=== PATIENT | female | born 1970 | race Caucasian/White ===

== ENCOUNTER 2017-06-02 15:22 | Emergency (ER) | payer BC, MEDICAID ==
[2017-06-02] MEDS ORDERED: Sodium Chloride 0.9% 500 ML IV ONE (15:59)
--- NOTE | 2017-06-02 16:15 | EDM.PDOC ---
ED HPI GENERAL MEDICAL PROBLEM - General Chief Complaint: Cardiovascular Problem Stated Complaint: [facility] Time Seen by Provider: 06/02/17 15:29 Source of Information: Reports: Patient History Limitations: Reports: No Limitations - History of Present Illness INITIAL COMMENTS - FREE TEXT/NARRATIVE: 47-year-old female presents via EMS for a rapid heartbeat. Reportedly around 1430 patient was watching TV when she experienced rapid heartbeat. They had a blood pressure cuff at home and her provided to her and she is on a heart rate ER from 160s to 190s. EMS was called. She is found to be in SVT. They attempted vagal maneuvers but were unsuccessful. She was given 6 mg of adenosine and did not convert. She converted to normal sinus rhythm with 12 mg of adenosine. Upon arrival to the ER patient is in a sinus tach rate up to 120s. She is resting comfortably. She is in no acute distress. She denies any chest pain, shortness of breath, lightheadedness, dizziness, nausea or vomiting. Patient's reports that she may have had an episode similar to this in April. She was at work when she experienced a rapid heartbeat. Was present for an hour. Resolved on its own. She's never been seen for anything like this before. Patient reports she is healthy with no known medical conditions. She is not on any medications. Reports that she had about a sixpack of beer last night. Denies any drug use. - Related Data Allergies Allergy/AdvReac Type Severity Reaction Status Date / Time horse dander Allergy Wheezing Verified 06/02/17 15:36 pet dander Allergy Wheezing Uncoded 06/02/17 15:36 Home Meds: Home Meds Albuterol [IJD: Ventolin HFA] 1 - 2 puff INH Q4H PRN 06/23/15 [History] Fluticasone/Salmeterol [Advair HFA 115-21 MCG] 1 puff INH BID 06/02/17 [History] Past Medical History HEENT History: Reports: Impaired Vision Other HEENT History: wears contacts. 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, R ovary oofrectomy Musculoskeletal History: Reports: Fracture - Infectious Disease History Infectious Disease History: Reports: Chicken Pox, Shingles Other Infectious Disease History: shingles 2 yrs ago - Past Surgical History HEENT Surgical History: Reports: Tonsillectomy Musculoskeletal Surgical History: Reports: Other (See Below) Other Musculoskeletal Surgeries/Procedures:: Ankle surgery x5 Social & Family History - Family History HEENT: Reports: Impaired Vision Other HEENT Family History: mom and dad Respiratory: Reports: COPD Other Respiratory Family Hisory: co-dad OBGYN: Reports: Musculoskeletal: Reports: Fibromyalgia Other Musculoskeletal Family History: mom - Tobacco Use Smoking Status *Q: Never Smoker Second Hand Smoke Exposure: No - Alcohol Use Days Per Week of Alcohol Use: 3 Number of Drinks Per Day: 0 Total Drinks Per Week: 0 - Recreational Drug Use Recreational Drug Use: No - Living Situation & Occupation Living situation: Reports: Occupation: Employed ED ROS GENERAL - Review of Systems Review Of Systems: See Below Constitutional: Denies: Fever Respiratory: Denies: Shortness of Breath Cardiovascular: Reports: Palpitations (tachycardia, earlier, now resolved). Denies: Chest Pain, Lightheadedness, Syncope GI/Abdominal: Denies: Abdominal Pain, Nausea, Vomiting Neurological: Denies: Headache, Syncope ED EXAM, GENERAL - Physical Exam Exam: See Below Exam Limited By: No Limitations General Appearance: Alert, WD/WN, No Apparent Distress Ears: Normal External Exam Nose: Normal Inspection Throat/Mouth: Normal Inspection, Normal Lips, Normal Voice, No Airway Compromise Respiratory/Chest: No Respiratory Distress, Lungs Clear, Normal Breath Sounds Cardiovascular: Normal Peripheral Pulses, Regular Rate, Rhythm, No Murmur GI/Abdominal: Soft, Non-Tender Neurological: Alert, Oriented, Normal Cognition Psychiatric: Normal Affect, Normal Mood Skin Exam: Warm, Dry, Normal Color EKG INTERPRETATION EKG Date: 06/02/17 Time: 15:25 Rhythm: Other (sins\us tachycardia at 105 bpm) Rate (Beats/Min): 105 [place]: Normal P-Wave: Present QRS: Normal ST-T: Normal QT: Normal EKG Interpretation Comments: Sinus tachycardia at 105 bpm. No acute changes. Reviewed by myself and Dr. Benites. Course - Vital Signs Last Recorded V/S: Last Vital Signs Temp 36.3 C 06/02/17 17:50 Pulse 111 H 06/02/17 15:25 Resp 16 06/02/17 17:50 BP 120/82 06/02/17 17:50 Pulse Ox 97 06/02/17 17:50 - Orders/Labs/Meds Orders: Active Orders 24 hr Category Date Time Status Cardiac Monitoring [RC] . DIRECTED Care 06/02/17 15:36 Active EKG 12 Lead [EKG Documentation Completion] [RC] STAT Care 06/02/17 15:44 Active Chest 1V Frontal [CR] Stat Exams 06/02/17 15:36 Taken Labs: Laboratory Tests 06/02/17 06/02/17 06/02/17 Range/Units 15:45 15:45 15:45 WBC 7.74 (3.98-10.04) K/mm3 RBC 3.92 L (3.98-5.22) M/mm3 Hgb 12.1 (11.2-15.7) gm/L Hct 36.1 (34.1-44.9) % MCV 92.1 (79.4-94.8) fl MCH 30.9 (25.6-32.2) pg MCHC 33.5 (32.2-35.5) g/dl RDW Std Deviation 46.2 (36.4-46.3) fL Plt Count 246 (182-369) K/mm3 MPV 9.5 (9.4-12.3) fl Neut % (Auto) 60.7 (34.0-71.1) % Lymph % (Auto) 23.9 (19.3-51.7) % [place] % (Auto) 7.1 (4.7-12.5) % Eos % (Auto) 7.6 H (0.7-5.8) Baso % (Auto) 0.6 (0.1-1.2) % Neut # (Auto) 4.69 (1.56-6.13) K/mm3 Lymph # (Auto) 1.85 (1.18-3.74) K/mm3 [place] # (Auto) 0.55 H (0.24-0.36) K/mm3 Eos # (Auto) 0.59 H (0.04-0.36) K/mm3 Baso # (Auto) 0.05 (0.01-0.08) K/mm3 Sodium 144 (136-145) mEq/L Potassium 4.2 (3.5-5.1) mEq/L Chloride 108 H (98-107) mEq/L Carbon Dioxide 23 (21-32) mEq/L Anion Gap 17.2 H (5-15) BUN 15 (7-18) mg/dL Creatinine 0.9 (0.55-1.02) mg/dL Est Cr Clr Drug Dosing 87.26 mL/min Estimated GFR (MDRD) > 60 (>60) mL/min BUN/Creatinine Ratio 16.7 (14-18) Glucose 93 (74-106) mg/dL Calcium 8.7 (8.5-10.1) mg/dL Magnesium 1.8 (1.8-2.4) mg/dl Total Bilirubin 0.3 (0.2-1.0) mg/dL AST 63 H (15-37) U/L ALT 37 (14-59) U/L Alkaline Phosphatase 71 (46-116) U/L Troponin I < 0.017 (0.00-0.056) ng/mL Total Protein 6.7 (6.4-8.2) g/dl Albumin 3.9 (3.4-5.0) g/dl Globulin 2.8 gm/dL Albumin/Globulin Ratio 1.4 (1-2) TSH 3rd Generation 1.889 (0.358-3.74) uIU/mL Meds: Medications Discontinued Medications Generic Name Dose Route Start Last Admin Trade Name Freq PRN Reason Stop Dose Admin Sodium Chloride 500 mls @ 500 mls/hr 06/02/17 15:59 06/02/17 16:07 Normal Saline IV 06/02/17 16:58 500 mls/hr ONETIME ONE Administration - Radiology Interpretation Free Text/Narrative:: chest xray shows no acute intrathoracic process. - Re-Assessments/Exams Free Text/Narrative Re-Assessment/Exam: 06/02/17 17:23 I reviewed the labs, EKG and imaging with the patient. she has been on the monitor since she arrived here and has not gone back into an SVT rhythm. She has been running in the 90s to low 100s. She received a liter and half of fluid. No etiology for her SVT has been found tonight. I will discharge her home at this time. Discharge instructions as documented. Departure - Departure Time of Disposition: 17:39 Disposition: Home, Self-Care 01 Condition: Good Clinical Impression: SVT (supraventricular tachycardia) Instructions: Supraventricular Tachycardia, Adult, [id number] Referrals: PCP,None [Ordering Only Provider] - Forms: ED Department Discharge Additional Instructions: Rest. Make sure drink plenty of fluids. Follow up with a primary care provider within for a recheck an ER follow-up. Recommend avoiding possible causes such as excessive caffeine or excessive alcohol. Please return to the ER if your symptoms change or worsen. - My Orders Last 24 Hours: My Active Orders 06/02/17 15:36 Cardiac Monitoring [RC] . DIRECTED Chest 1V Frontal [CR] Stat 06/02/17 15:44 EKG 12 Lead [EKG Documentation Completion] [RC] STAT - Assessment/Plan Last 24 Hours: My Active Orders 06/02/17 15:36 Cardiac Monitoring [RC] . DIRECTED Chest 1V Frontal [CR] Stat 06/02/17 15:44 EKG 12 Lead [EKG Documentation Completion] [RC] STAT
[2017-06-02 18:01] VITALS: BP 120/82
--- NOTE | 2017-06-03 07:38 | CR ---
Chest: Portable view of the chest was obtained. Comparison: Prior chest x-ray of 06/23/15. Heart size and mediastinum are normal. Lungs are clear but hyperinflated. Bony structures are unremarkable. Impression: 1. Probable emphysematous change. Nothing acute is otherwise seen on portable chest x-ray. Diagnostic code #2
== END 2017-06-02 17:55 | disposition home or self-care (01) ==
LOC: JD.ED 15:22
DX: I47.1 Supraventricular tachycardia (principal); J45.909 Unspecified asthma, uncomplicated; Z91.048 Other nonmedicinal substance allergy status
CPT/HCPCS: 36415; 71045; 80053; 83735; 84443; 84484; 85025; 93005; 96360; 99285; J7040; 93010; 99283-25

== ENCOUNTER 2018-04-25 08:07 | Emergency (ER) | payer BC ==
[~2018-04-25 08:07] MED LIST: Adenosine 12 MG/4 ML SDV ONE; Adenosine 6 MG/2 ML SDV ONE
[2018-04-25] MEDS ORDERED: Diltiazem 125 MG/25 ML SDV ONE (08:16)
[2018-04-25] MEDS ORDERED: Sodium Chloride 0.9% 10 ML Syringe FLUSH PRN (08:17)
[2018-04-25] MEDS ORDERED: Diltiazem 50 MG/10 ML SDV IVPUSH ONE (08:19)
[2018-04-25] MEDS ORDERED: Adenosine 6 MG/2 ML SDV IVPUSH ONE (08:19)
[2018-04-25] MEDS ORDERED: Diltiazem 50 MG/10 ML SDV ONE (08:20)
[2018-04-25] MEDS ORDERED: Sodium Chloride 0.9% 1,000 ML IV SCH ×2 (08:30→10:30)
[2018-04-25] MEDS ORDERED: Diltiazem 125 MG in Sodium Chloride 0.9% 100 ML IV SCH ×2 (08:30→11:15)
--- NOTE | 2018-04-25 08:50 | CR ---
Chest: Frontal view of the chest was obtained. Comparison: Previous chest x-ray of 06/02/17. Increasing interstitial change is noted from previous exam. Lungs otherwise are clear. Heart size and mediastinum are normal. Lungs are hyperinflated compatible with emphysematous change. Impression: 1. Increasing interstitial change. Findings could represent worsening pulmonary fibrosis versus bronchitis if patient has infectious symptoms. 2. Emphysematous change. Diagnostic code #3
--- NOTE | 2018-04-25 09:50 | EDM.PDOC ---
ED HPI GENERAL MEDICAL PROBLEM - General Chief Complaint: Cardiovascular Problem Stated Complaint: [facility] Time Seen by Provider: 04/25/18 08:17 Source of Information: Reports: Patient, EMS History Limitations: Reports: No Limitations - History of Present Illness INITIAL COMMENTS - FREE TEXT/NARRATIVE: The patient presents by [facility] for SVT. The patient has a history of SVT and this morning when she woke up she felt like her heart was racing. She denies chest pain but she does have some shortness of breath. EMS could not get a line but they did try vagal maneuvers and could not get her converted. When she arrived here, her heart rate was in the 200s and even as high as 240. I had her bear down and raised her legs for vagal stimulation and she slowed down a little and it looked like A-fib. She denies fever or chills. She does have a slight cough but she noticed that with the palpitations. She does admit to drinking about 6 beers last night. She has no abdominal pain, nausea or vomiting. Onset: Sudden Duration: Minutes: Severity: Moderate Improves with: Reports: None Worsens with: Reports: None Associated Symptoms: Reports: Cough, Shortness of Breath. Denies: Fever/Chills , Headaches, Nausea/Vomiting - Related Data Allergies Allergy/AdvReac Type Severity Reaction Status Date / Time horse dander Allergy Wheezing Verified 04/25/18 09:06 pet dander Allergy Wheezing Uncoded 06/02/17 15:36 Home Meds: Home Meds Albuterol [IJD: Ventolin HFA] 1 - 2 puff INH Q4H PRN 06/23/15 [History] Aspirin 81 mg PO DAILY #30 tab.chew 04/25/18 [Rx] Diltiazem HCl [Cardizem LA] 180 mg PO DAILY #30 tab.sr.24h 04/25/18 [Rx] Past Medical History - Past Health History Medical/Surgical History: Denies Medical/Surgical History HEENT History: Reports: Impaired Vision Other HEENT History: wears contacts. 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, R ovary oofrectomy Musculoskeletal History: Reports: Fracture - Infectious Disease History Infectious Disease History: Reports: Chicken Pox, Shingles Other Infectious Disease History: shingles 2 yrs ago - Past Surgical History HEENT Surgical History: Reports: Tonsillectomy Musculoskeletal Surgical History: Reports: Other (See Below) Other Musculoskeletal Surgeries/Procedures:: Ankle surgery x5 Social & Family History - Family History HEENT: Reports: Impaired Vision Other HEENT Family History: mom and dad Respiratory: Reports: COPD Other Respiratory Family Hisory: co-dad OBGYN: Reports: Musculoskeletal: Reports: Fibromyalgia Other Musculoskeletal Family History: mom - Tobacco Use Smoking Status *Q: Unknown Ever Smoked - Living Situation & Occupation Living situation: Reports: Occupation: Employed ED ROS GENERAL - Review of Systems Review Of Systems: See Below Constitutional: Reports: No Symptoms HEENT: Reports: No Symptoms Respiratory: Reports: Shortness of Breath, Cough Cardiovascular: Reports: Palpitations. Denies: Chest Pain Endocrine: Reports: No Symptoms GI/Abdominal: Reports: No Symptoms : Reports: No Symptoms ED EXAM, GENERAL - Physical Exam Exam: See Below Exam Limited By: No Limitations General Appearance: Alert, No Apparent Distress Ears: Normal External Exam Nose: Normal Inspection Head: Atraumatic, Normocephalic Neck: Normal Inspection Respiratory/Chest: No Respiratory Distress, Lungs Clear, Normal Breath Sounds Cardiovascular: No Edema, No Murmur, Tachycardia GI/Abdominal: Soft, Non-Tender, No Organomegaly, No Mass Back Exam: Normal Inspection Extremities: Normal Inspection Neurological: Alert, Oriented, No Motor/Sensory Deficits Course - Vital Signs Last Recorded V/S: Last Vital Signs Temp 98.5 F 04/25/18 09:01 Pulse 107 H 04/25/18 12:45 Resp 13 04/25/18 12:45 BP 90/75 04/25/18 12:45 Pulse Ox 98 04/25/18 12:45 - Orders/Labs/Meds Orders: Active Orders 24 hr Category Date Time Status Cardiac Monitoring [RC] . DIRECTED Care 04/25/18 08:18 Active EKG Documentation Completion [RC] STAT Care 04/25/18 08:18 Active Oxygen Therapy [RC] PRN Care 04/25/18 08:18 Active Peripheral IV Care [RC] . DIRECTED Care 04/25/18 08:18 Active Diltiazem 125 mg Med 04/25/18 08:30 Active Sodium Chloride 0.9% [Normal Saline] 100 ml IV TITRATE Diltiazem 125 mg Med 04/25/18 11:15 Active Sodium Chloride 0.9% [Normal Saline] 100 ml IV TITRATE Sodium Chloride 0.9% [Normal Saline] 1,000 ml Med 04/25/18 08:30 Active IV .BOLUS Sodium Chloride 0.9% [Normal Saline] 1,000 ml Med 04/25/18 10:30 Active IV ASDIRECTED Sodium Chloride 0.9% [Saline Flush] Med 04/25/18 08:17 Active 10 ml FLUSH ASDIRECTED PRN Peripheral IV Insertion Adult [OM.PC] Stat Oth 04/25/18 08:17 Ordered Medication Orders Diltiazem HCl 125 mg/ Sodium (Chloride) 125 mls @ 10 mls/hr IV TITRATE NNEKA; Protocol Last Titration: 04/25/18 11:01 Dose: 15 mg/hr, 15 mls/hr Admin: 04/25/18 08:32 Dose: 10 mg/hr, 10 mls/hr Sodium Chloride (Normal Saline) 1,000 mls @ 1,000 mls/hr IV .BOLUS NNEKA Last Admin: 04/25/18 08:29 Dose: 1,000 mls/hr Sodium Chloride (Normal Saline) 1,000 mls @ 150 mls/hr IV ASDIRECTED NNEKA Diltiazem HCl 125 mg/ Sodium (Chloride) 125 mls @ 15 mls/hr IV TITRATE NNEKA; Protocol Sodium Chloride (Saline Flush) 10 ml FLUSH ASDIRECTED PRN PRN Reason: Keep Vein Open Last Admin: 04/25/18 08:33 Dose: 10 ml Labs: Laboratory Tests 04/25/18 04/25/18 04/25/18 Range/Units 08:10 08:10 08:10 WBC 9.92 (3.98-10.04) K/mm3 RBC 4.76 (3.98-5.22) M/mm3 Hgb 14.5 (11.2-15.7) gm/L Hct 43.7 (34.1-44.9) % MCV 91.8 (79.4-94.8) fl MCH 30.5 (25.6-32.2) pg MCHC 33.2 (32.2-35.5) g/dl RDW Std Deviation 44.4 (36.4-46.3) fL Plt Count 293 (182-369) K/mm3 MPV 10.3 (9.4-12.3) fl Neut % (Auto) 67.8 (34.0-71.1) % Lymph % (Auto) 23.6 (19.3-51.7) % [place] % (Auto) 4.4 L (4.7-12.5) % Eos % (Auto) 3.4 (0.7-5.8) Baso % (Auto) 0.7 (0.1-1.2) % Neut # (Auto) 6.72 H (1.56-6.13) K/mm3 Lymph # (Auto) 2.34 (1.18-3.74) K/mm3 [place] # (Auto) 0.44 H (0.24-0.36) K/mm3 Eos # (Auto) 0.34 (0.04-0.36) K/mm3 Baso # (Auto) 0.07 (0.01-0.08) K/mm3 Sodium 140 (136-145) mEq/L Potassium 3.7 (3.5-5.1) mEq/L Chloride 104 (98-107) mEq/L Carbon Dioxide 23 (21-32) mEq/L Anion Gap 16.7 H (5-15) BUN 12 (7-18) mg/dL Creatinine 1.0 (0.55-1.02) mg/dL Est Cr Clr Drug Dosing TNP Estimated GFR (MDRD) 59 (>60) mL/min BUN/Creatinine Ratio 12.0 L (14-18) Glucose 136 H (74-106) mg/dL Calcium 9.9 (8.5-10.1) mg/dL Total Bilirubin 0.5 (0.2-1.0) mg/dL AST 24 (15-37) U/L ALT 29 (14-59) U/L Alkaline Phosphatase 69 (46-116) U/L Troponin I 0.020 (0.00-0.056) ng/mL Total Protein 7.6 (6.4-8.2) g/dl Albumin 4.2 (3.4-5.0) g/dl Globulin 3.4 gm/dL Albumin/Globulin Ratio 1.2 (1-2) TSH 3rd Generation 2.790 (0.358-3.74) uIU/mL Ethyl Alcohol 0.00 (0.00) gm% Meds: Medications Generic Name Dose Route Start Last Admin Trade Name Edinq PRN Reason Stop Dose Admin Diltiazem HCl 125 mg/ Sodium 125 mls @ 10 mls/hr 04/25/18 08:30 04/25/18 11: 01 Chloride IV 15 mg/hr TITRATE NNEKA 15 mls/hr Titration Protocol 10 MG/HR Sodium Chloride 1,000 mls @ 1,000 mls/hr 04/25/18 08:30 04/25/18 08:29 Normal Saline IV 1,000 mls/hr .BOLUS NNEKA Administration Sodium Chloride 1,000 mls @ 150 mls/hr 04/25/18 10:30 Normal Saline IV ASDIRECTED NNEKA Diltiazem HCl 125 mg/ Sodium 125 mls @ 15 mls/hr 04/25/18 11:15 Chloride IV TITRATE NNEKA Protocol 15 MG/HR Sodium Chloride 10 ml 04/25/18 08:17 04/25/18 08:33 Saline Flush FLUSH 10 ml ASDIRECTED PRN Administration Keep Vein Open Discontinued Medications Generic Name Dose Route Start Last Admin Trade Name Brian PRN Reason Stop Dose Admin Adenosine 6 mg 04/25/18 08:19 04/25/18 08:15 Adenocard IVPUSH 04/25/18 08:20 6 mg NOW ONE Administration Adenosine Confirm 04/25/18 08:04 Adenocard Administered 04/25/18 08:05 Dose 6 mg .ROUTE .STK-MED ONE Adenosine Confirm 04/25/18 08:04 Adenocard Administered 04/25/18 08:05 Dose 12 mg .ROUTE .STK-MED ONE Diltiazem HCl 10 mg 04/25/18 08:19 04/25/18 08:18 Cardizem IVPUSH 04/25/18 08:20 10 mg ONETIME ONE Administration Diltiazem HCl Confirm 04/25/18 08:16 04/25/18 08:33 Diltiazem Administered 04/25/18 08:17 Not Given Dose 125 mg .ROUTE .STK-MED ONE Diltiazem HCl Confirm 04/25/18 08:20 04/25/18 08:33 Cardizem Administered 04/25/18 08:21 Not Given Dose 50 mg .ROUTE .STK-MED ONE Diltiazem HCl 60 mg 04/25/18 12:54 04/25/18 13:12 Cardizem PO 04/25/18 12:55 60 mg ONETIME ONE Administration - Re-Assessments/Exams Free Text/Narrative Re-Assessment/Exam: 04/25/18 09:51 I ordered an IV NS 1L bolus, adenisine 6mg IV, EKG, CXR and labs. 04/25/18 11:32 Her EKG shows atrial fibrillation with a rate of 214. I tried adenisine and it had very little affect. I ordered a cardizem bolus and drip. Her CXR as read by Dr Russell shows increaseing interstitial change. Findings could represent worsening pulmonary fibrosis versus bronchitis if patient has infectious symptoms. Emphysematous change. Her CBC looks good. Her anion gap was elevated at 16.7. Her troponin is normal. Her TSH is negative. Her ETOH is 0. Her heart rate has gone down to the 120s. I feel she needs to be admitted but she would rather not. She would like to hang around for awhile and see if her heart rate slows down and possibly go home. I upped her cardizem drip to 15mg/hr. 04/25/18 14:19 I did give her some oral cardizem and her heart rate at times would go into the 80s and 90s. She is still in A-fib. She still does not want to be admitted and she would like to go home. Her CHAD2 score is 1. I will have her take a baby aspirin per day and I will start her on some cardizem. Departure - Departure Time of Disposition: 14:25 Disposition: Home, Self-Care 01 Condition: Good Clinical Impression: New onset atrial fibrillation Prescriptions: Aspirin 81 mg PO DAILY #30 tab.chew Diltiazem HCl [Cardizem LA] 180 mg PO DAILY #30 tab.sr.24h Referrals: PCP,None [Primary Care Provider] - Vignesh Johnson MD [Physician] - 1 Week Forms: ED Department Discharge Additional Instructions: Take the cardizem and aspirin daily. Follow up with your doctor. I have given your Dr Johnson's contact information if you cannot get into anyone else. Please return if your heart rate gets worse or you develop chest pain or shortness of breath. - My Orders Last 24 Hours: My Active Orders 04/25/18 08:17 Sodium Chloride 0.9% [Saline Flush] 10 ml FLUSH ASDIRECTED PRN Peripheral IV Insertion Adult [OM.PC] Stat 04/25/18 08:18 Cardiac Monitoring [RC] . DIRECTED EKG Documentation Completion [RC] STAT Oxygen Therapy [RC] PRN Peripheral IV Care [RC] . DIRECTED 04/25/18 08:30 Diltiazem 125 mg Sodium Chloride 0.9% [Normal Saline] 100 ml IV TITRATE Sodium Chloride 0.9% [Normal Saline] 1,000 ml IV .BOLUS 04/25/18 10:30 Sodium Chloride 0.9% [Normal Saline] 1,000 ml IV ASDIRECTED 04/25/18 11:15 Diltiazem 125 mg Sodium Chloride 0.9% [Normal Saline] 100 ml IV TITRATE - Assessment/Plan Last 24 Hours: My Active Orders 04/25/18 08:17 Sodium Chloride 0.9% [Saline Flush] 10 ml FLUSH ASDIRECTED PRN Peripheral IV Insertion Adult [OM.PC] Stat 04/25/18 08:18 Cardiac Monitoring [RC] . DIRECTED EKG Documentation Completion [RC] STAT Oxygen Therapy [RC] PRN Peripheral IV Care [RC] . DIRECTED 04/25/18 08:30 Diltiazem 125 mg Sodium Chloride 0.9% [Normal Saline] 100 ml IV TITRATE Sodium Chloride 0.9% [Normal Saline] 1,000 ml IV .BOLUS 04/25/18 10:30 Sodium Chloride 0.9% [Normal Saline] 1,000 ml IV ASDIRECTED 04/25/18 11:15 Diltiazem 125 mg Sodium Chloride 0.9% [Normal Saline] 100 ml IV TITRATE
[2018-04-25] MEDS ORDERED: Diltiazem IR 60 MG Tab PO ONE (12:54)
[2018-04-25 14:24] VITALS: BP 104/79
== END 2018-04-25 14:41 | disposition home or self-care (01) ==
LOC: JD.ED 08:07
DX: I48.91 Unspecified atrial fibrillation (principal); Z91.09 Other allergy status, other than to drugs and biological substances; Z79.899 Other long term (current) drug therapy
CPT/HCPCS: 36415; 71045; 80053; 84443; 84484; 85025; 93005; 96361; 96365; 96366; 96375; 96376; 99285; A9270; G0480; J0153; J3490; J7030; J7040; 93010; 99284

== ENCOUNTER 2018-08-24 19:12 | Emergency (ER) | payer BC, OTHER ==
[2018-08-24] MEDS ORDERED: Diltiazem 50 MG/10 ML SDV ONE (19:29)
[2018-08-24] MEDS ORDERED: Sodium Chloride 0.9% 10 ML Syringe FLUSH PRN (19:33)
[2018-08-24] MEDS ORDERED: Diltiazem 50 MG/10 ML SDV IVPUSH ONE (19:34)
[2018-08-24 19:39] VITALS: BP 110/77
[2018-08-24] MEDS ORDERED: Diltiazem 125 MG in Sodium Chloride 0.9% 100 ML IV SCH (19:45)
[2018-08-24] MEDS ORDERED: Sodium Chloride 0.9% 1,000 ML IV SCH ×2 (19:45→20:45)
--- NOTE | 2018-08-24 20:27 | EDM.PDOC ---
ED HPI GENERAL MEDICAL PROBLEM - General Chief Complaint: Cardiovascular Problem Stated Complaint: rapid heart beat Time Seen by Provider: 08/24/18 19:28 Source of Information: Reports: Patient History Limitations: Reports: No Limitations - History of Present Illness INITIAL COMMENTS - FREE TEXT/NARRATIVE: The patient presents with palpitations. She has a history of atrial fibrillation. She was busy working all day and she felt it come on a few hours ago. She took an oral cardizem but it did not help. She has no fever, chills, cough, congestion, chest pain, shortness of breath, abdominal pain, nausea or vomiting. She thinks she may be dehydrated. She was trying to drink water but she got busy. She has had this before and she is on diltiazim. Onset: Sudden Duration: Hour(s): Severity: Moderate Improves with: Reports: None Worsens with: Reports: None Associated Symptoms: Denies: Chest Pain, Cough, Fever/Chills, Headaches, Nausea/ Vomiting, Shortness of Breath - Related Data Allergies Allergy/AdvReac Type Severity Reaction Status Date / Time horse dander Allergy Wheezing Verified 08/24/18 20:41 pet dander Allergy Wheezing Uncoded 08/24/18 20:41 Home Meds: Home Meds Albuterol [IJD: Ventolin HFA] 1 - 2 puff INH Q4H PRN 06/23/15 [History] Aspirin 81 mg PO DAILY #30 tab.chew 04/25/18 [Rx] Diltiazem HCl [Cardizem LA] 180 mg PO DAILY #30 tab.sr.24h 04/25/18 [Rx] Past Medical History - Past Health History Medical/Surgical History: Denies Medical/Surgical History HEENT History: Reports: Impaired Vision Other HEENT History: wears contacts. 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, R ovary oofrectomy Musculoskeletal History: Reports: Fracture - Infectious Disease History Infectious Disease History: Reports: Chicken Pox, Shingles Other Infectious Disease History: shingles 2 yrs ago - Past Surgical History HEENT Surgical History: Reports: Tonsillectomy Musculoskeletal Surgical History: Reports: Other (See Below) Other Musculoskeletal Surgeries/Procedures:: Ankle surgery x5 Social & Family History - Family History HEENT: Reports: Impaired Vision Other HEENT Family History: mom and dad Respiratory: Reports: COPD Other Respiratory Family Hisory: co-dad OBGYN: Reports: Musculoskeletal: Reports: Fibromyalgia Other Musculoskeletal Family History: mom - Tobacco Use Smoking Status *Q: Never Smoker - Caffeine Use Caffeine Use: Reports: None - Recreational Drug Use Recreational Drug Use: No - Living Situation & Occupation Living situation: Reports: Occupation: Employed ED ROS GENERAL - Review of Systems Review Of Systems: See Below Constitutional: Reports: No Symptoms HEENT: Reports: No Symptoms Respiratory: Reports: No Symptoms Cardiovascular: Reports: Palpitations. Denies: Chest Pain Endocrine: Reports: No Symptoms GI/Abdominal: Reports: No Symptoms : Reports: No Symptoms ED EXAM, GENERAL - Physical Exam Exam: See Below Exam Limited By: No Limitations General Appearance: Alert, No Apparent Distress Ears: Normal External Exam Nose: Normal Inspection Head: Atraumatic, Normocephalic Neck: Normal Inspection Respiratory/Chest: No Respiratory Distress, Lungs Clear, Normal Breath Sounds Cardiovascular: No Edema, No Murmur, Tachycardia, Irregularly Irregular GI/Abdominal: Soft, Non-Tender, No Organomegaly, No Mass Back Exam: Normal Inspection Extremities: Normal Inspection EKG INTERPRETATION EKG Date: 08/24/18 Time: 19:17 Rhythm: A-Fib Rate (Beats/Min): 176 [place]: Normal QRS: Normal ST-T: Normal QT: Normal Course - Vital Signs Last Recorded V/S: Last Vital Signs Temp 97.0 F 08/24/18 19:26 Pulse 65 08/24/18 19:26 Resp 17 08/24/18 19:26 BP 110/77 08/24/18 19:26 Pulse Ox 98 08/24/18 19:26 - Orders/Labs/Meds Orders: Active Orders 24 hr Category Date Time Status Cardiac Monitoring [RC] . DIRECTED Care 08/24/18 19:33 Active EKG Documentation Completion [RC] ASDIRECTED Care 08/24/18 19:27 Active Peripheral IV Care [RC] . DIRECTED Care 08/24/18 19:34 Active Chest 1V Frontal [CR] Stat Exams 08/24/18 19:34 Taken Diltiazem 125 mg Med 08/24/18 19:45 Active Sodium Chloride 0.9% [Normal Saline] 100 ml IV TITRATE Diltiazem IR [Cardizem] Med 08/24/18 20:50 Once 60 mg PO ONETIME ONE Sodium Chloride 0.9% [Normal Saline] 1,000 ml Med 08/24/18 19:45 Active IV .BOLUS Sodium Chloride 0.9% [Normal Saline] 1,000 ml Med 08/24/18 20:45 Active IV ASDIRECTED Sodium Chloride 0.9% [Saline Flush] Med 08/24/18 19:33 Active 10 ml FLUSH ASDIRECTED PRN Peripheral IV Insertion Adult [OM.PC] Stat Oth 08/24/18 19:33 Ordered EKG 12 Lead [EK] Stat Ther 08/24/18 19:27 Ordered Medication Orders Diltiazem HCl 125 mg/ Sodium (Chloride) 125 mls @ 10 mls/hr IV TITRATE NNEKA; Protocol Last Admin: 08/24/18 19:51 Dose: 10 mg/hr, 10 mls/hr Sodium Chloride (Normal Saline) 1,000 mls @ 1,000 mls/hr IV .BOLUS NNEKA Last Admin: 08/24/18 19:47 Dose: 1,000 mls/hr Sodium Chloride (Normal Saline) 1,000 mls @ 150 mls/hr IV ASDIRECTED NNEKA Sodium Chloride (Saline Flush) 10 ml FLUSH ASDIRECTED PRN PRN Reason: Keep Vein Open Last Admin: 08/24/18 19:51 Dose: 10 ml Labs: Laboratory Tests 08/24/18 08/24/18 Range/Units 19:24 19:24 WBC 11.05 H (3.98-10.04) K/mm3 RBC 4.37 (3.98-5.22) M/mm3 Hgb 13.5 (11.2-15.7) gm/L Hct 39.6 (34.1-44.9) % MCV 90.6 (79.4-94.8) fl MCH 30.9 (25.6-32.2) pg MCHC 34.1 (32.2-35.5) g/dl RDW Std Deviation 43.0 (36.4-46.3) fL Plt Count 281 (182-369) K/mm3 MPV 10.1 (9.4-12.3) fl Neut % (Auto) 67.2 (34.0-71.1) % Lymph % (Auto) 21.4 (19.3-51.7) % [place] % (Auto) 8.2 (4.7-12.5) % Eos % (Auto) 2.6 (0.7-5.8) Baso % (Auto) 0.5 (0.1-1.2) % Neut # (Auto) 7.43 H (1.56-6.13) K/mm3 Lymph # (Auto) 2.36 (1.18-3.74) K/mm3 [place] # (Auto) 0.91 H (0.24-0.36) K/mm3 Eos # (Auto) 0.29 (0.04-0.36) K/mm3 Baso # (Auto) 0.05 (0.01-0.08) K/mm3 Sodium 134 L (136-145) mEq/L Potassium 3.5 (3.5-5.1) mEq/L Chloride 99 (98-107) mEq/L Carbon Dioxide 22 (21-32) mEq/L Anion Gap 16.5 H (5-15) BUN 13 (7-18) mg/dL Creatinine 1.0 (0.55-1.02) mg/dL Est Cr Clr Drug Dosing TNP Estimated GFR (MDRD) 59 (>60) mL/min BUN/Creatinine Ratio 13.0 L (14-18) Glucose 109 H (74-106) mg/dL Calcium 9.8 (8.5-10.1) mg/dL Total Bilirubin 1.0 (0.2-1.0) mg/dL AST 22 (15-37) U/L ALT 26 (14-59) U/L Alkaline Phosphatase 66 (46-116) U/L Troponin I 0.020 (0.00-0.056) ng/mL Total Protein 7.6 (6.4-8.2) g/dl Albumin 4.5 (3.4-5.0) g/dl Globulin 3.1 gm/dL Albumin/Globulin Ratio 1.5 (1-2) Meds: Medications Generic Name Dose Route Start Last Admin Trade Name Freq PRN Reason Stop Dose Admin Diltiazem HCl 125 mg/ Sodium 125 mls @ 10 mls/hr 08/24/18 19:45 08/24/18 19: 51 Chloride IV 10 mg/hr TITRATE NNEKA 10 mls/hr Administration Protocol 10 MG/HR Sodium Chloride 1,000 mls @ 1,000 mls/hr 08/24/18 19:45 08/24/18 19:47 Normal Saline IV 1,000 mls/hr .BOLUS NNEKA Administration Sodium Chloride 1,000 mls @ 150 mls/hr 08/24/18 20:45 Normal Saline IV ASDIRECTED NNEKA Sodium Chloride 10 ml 08/24/18 19:33 08/24/18 19:51 Saline Flush FLUSH 10 ml ASDIRECTED PRN Administration Keep Vein Open Discontinued Medications Generic Name Dose Route Start Last Admin Trade Name Freq PRN Reason Stop Dose Admin Diltiazem HCl Confirm 08/24/18 19:29 Cardizem Administered 08/24/18 19:30 Dose 50 mg .ROUTE .STK-MED ONE Diltiazem HCl 20 mg 08/24/18 19:34 08/24/18 19:48 Cardizem IVPUSH 08/24/18 19:35 20 mg ONETIME ONE Administration - Re-Assessments/Exams Free Text/Narrative Re-Assessment/Exam: 08/24/18 20:27 I ordered an IV NS 1L bolus, cardizem 20mg bolus IV, cardizem drip at 10mg/hr, labs, EKG and CXR. Her EKG shows atrial fibrillation at a rate of 176. Her WBC is slightly elevated at 11.05. Her Na is a little low at 134. Her anion gap is a little elevated at 16.5. Her troponin is negative. 08/24/18 20:50 Her heart rate is better. She does not want to stay. I will continue the drip for another 45 minutes and give her an oral dose of cardizem and discharge her home. Departure - Departure Time of Disposition: 20:55 Disposition: Home, Self-Care 01 Condition: Good Clinical Impression: Atrial fibrillation with RVR Referrals: PCP,None [Primary Care Provider] - Forms: ED Department Discharge Additional Instructions: Drink plenty of fluids. 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 Please return if you are worse. - My Orders Last 24 Hours: My Active Orders 08/24/18 19:27 EKG Documentation Completion [RC] ASDIRECTED EKG 12 Lead [EK] Stat 08/24/18 19:33 Cardiac Monitoring [RC] . DIRECTED Sodium Chloride 0.9% [Saline Flush] 10 ml FLUSH ASDIRECTED PRN Peripheral IV Insertion Adult [OM.PC] Stat 08/24/18 19:34 Peripheral IV Care [RC] . DIRECTED Chest 1V Frontal [CR] Stat 08/24/18 19:45 Diltiazem 125 mg Sodium Chloride 0.9% [Normal Saline] 100 ml IV TITRATE Sodium Chloride 0.9% [Normal Saline] 1,000 ml IV .BOLUS 08/24/18 20:45 Sodium Chloride 0.9% [Normal Saline] 1,000 ml IV ASDIRECTED 08/24/18 20:50 Diltiazem IR [Cardizem] 60 mg PO ONETIME ONE - Assessment/Plan Last 24 Hours: My Active Orders 08/24/18 19:27 EKG Documentation Completion [RC] ASDIRECTED EKG 12 Lead [EK] Stat 08/24/18 19:33 Cardiac Monitoring [RC] . DIRECTED Sodium Chloride 0.9% [Saline Flush] 10 ml FLUSH ASDIRECTED PRN Peripheral IV Insertion Adult [OM.PC] Stat 08/24/18 19:34 Peripheral IV Care [RC] . DIRECTED Chest 1V Frontal [CR] Stat 08/24/18 19:45 Diltiazem 125 mg Sodium Chloride 0.9% [Normal Saline] 100 ml IV TITRATE Sodium Chloride 0.9% [Normal Saline] 1,000 ml IV .BOLUS 08/24/18 20:45 Sodium Chloride 0.9% [Normal Saline] 1,000 ml IV ASDIRECTED 08/24/18 20:50 Diltiazem IR [Cardizem] 60 mg PO ONETIME ONE
[2018-08-24] MEDS ORDERED: Diltiazem IR 60 MG Tab PO ONE (20:50)
--- NOTE | 2018-08-25 09:07 | CR ---
Chest: Portable view of the chest was obtained. Comparison: Prior chest x-ray of 04/25/18. Heart size appears within normal limits for portable technique. Lungs are somewhat hyperinflated. Lung markings are mildly increased which appear chronic. No acute parenchymal change is seen. Bony structures are grossly intact. Impression: 1. Probable emphysematous change. 2. Mild chronic increased lung markings. 3. Nothing acute is suspected. Diagnostic code #3
== END 2018-08-24 21:58 | disposition home or self-care (01) ==
LOC: JD.ED 19:12
DX: I48.91 Unspecified atrial fibrillation (principal); Z79.82 Long term (current) use of aspirin; Z79.899 Other long term (current) drug therapy; J45.909 Unspecified asthma, uncomplicated; Z91.048 Other nonmedicinal substance allergy status
CPT/HCPCS: 36415; 71045; 80053; 84484; 85025; 93005; 96365; 96366; 96376; 99285; A9270; J3490; J7030; J7040; 93010; 99284

== ENCOUNTER 2022-07-18 21:10 | Emergency (ER) | payer BC ==
[2022-07-18] MEDS ORDERED: Diltiazem 25 MG/5 ML SDV IVPUSH STA (21:54)
[2022-07-18] MEDS ORDERED: Diltiazem 25 MG/5 ML SDV IVPUSH ONE (22:00)
[2022-07-18] MEDS ORDERED: Diltiazem 125 MG in Sodium Chloride 0.9% 100 ML IV SCH (22:00)
[2022-07-18 22:11] LABS: BASOPHILS ABSOLUTE AUTO 0.03 K/mm3 (0.01-0.08); BASOPHILS PERCENT AUTO 0.4 % (0.1-1.2); EOSINOPHILS ABSOLUTE AUTO 0.24 K/mm3 (0.04-0.36); EOSINOPHILS PERCENT AUTO 3.1 (0.7-5.8); HEMATOCRIT 42.1 % (34.1-44.9); IMMATURE GRAN ABSOLUTE AUTO 0.02 K/mm3 (0.00-0.10); IMMATURE GRAN PERCENT AUTO 0.3 % (<=1.0); LYMPHOCYTES ABSOLUTE AUTO 3.07 K/mm3 (1.18-3.74); LYMPHOCYTES PERCENT AUTO 39.2 % (19.3-51.7); MEAN CORPUSCULAR HEMOGLOBIN 31.2 pg (25.6-32.2); MEAN CORPUSCULAR HGB CONC 33.3 g/dl (32.2-35.5); MEAN CORPUSCULAR VOLUME 93.8 fl (79.4-94.8); MEAN PLATELET VOLUME 10.4 fl (9.4-12.3); MONOCYTES ABSOLUTE AUTO 0.67 K/mm3 (0.24-0.36); MONOCYTES PERCENT AUTO 8.6 % (4.7-12.5); NEUTROPHILS PERCENT AUTO 48.4 % (34.0-71.1); PLATELET COUNT,PLT 250 K/mm3 (182-369); RED BLOOD CELL COUNT 4.49 M/mm3 (3.98-5.22); WHITE BLOOD CELL COUNT,WBC 7.83 K/mm3 (3.98-10.04)
[2022-07-18] MEDS ORDERED: Sodium Chloride 0.9% 0 ML ONE (22:13)
[2022-07-18 22:35] LABS: ALBUMIN 4.1 g/dl (3.4-5.0); ANION GAP 15.2 (5-15); CALCIUM 9.8 mg/dL (8.5-10.1); CREATININE 1.1 mg/dL (0.55-1.02); EST CRCL DRUG DOSING (CG) 69.59 mL/min; POTASSIUM,K 3.2 mEq/L (3.5-5.1); PROTEIN TOTAL,TP 7.4 g/dl (6.4-8.2)
[2022-07-18 22:36] LABS: A/G RATIO 1.2 (1-2); BILIRUBIN TOTAL 0.5 mg/dL (0.2-1.0); MAGNESIUM 2.2 mg/dL (1.8-2.4); TSH 6.288 uIU/mL (0.358-3.74)
[2022-07-18 22:48] LABS: D-DIMER QUANTITATIVE 0.21 mg/L (0.19-0.50); PROTHROMBIN TIME 10.7 SECONDS (9.7-12.0)
[2022-07-18 22:49] LABS: PTT,PARTIAL THROMBOPLSTIN TIME 25.3 SECONDS (21.7-31.4)
[2022-07-18] MEDS ORDERED: Potassium Chloride 20 MEQ Tab.ER PO ONE (23:13)
[2022-07-19 04:37] VITALS: BP 100/69; PULSE 78
== END 2022-07-19 04:52 | disposition home or self-care (01) ==
LOC: JD.ED 21:10
DX: I48.91 Unspecified atrial fibrillation (principal); E87.6 Hypokalemia; J45.909 Unspecified asthma, uncomplicated; Z91.048 Other nonmedicinal substance allergy status
CPT/HCPCS: 36415; 71045; 80053; 83735; 84443; 84484; 85025; 85379; 85610; 85730; 93005; 96365; 96366; 99285; A9270; J3490; 93010; 99284